=== PATIENT | male | born 1985 | race American Indian/Alaskan Native ===

== ENCOUNTER 2016-06-15 19:04 | Emergency (ER) | payer SELFPAY ==
[2016-06-16 02:25] VITALS: BP 130/73
[2016-06-16] MEDS ORDERED: ROBITUSSIN AC PO ONE (02:55)
[2016-06-16] MEDS ORDERED: TYLENOL PO ONE (02:55)
--- NOTE | 2016-06-16 02:56 | Emergency Department Report ---
HPI - General Chief Complaint: Upper Respiratory Infection Time Seen by Provider: 06/16/16 02:54 - HPI HPI: Patient is a 30-year-old male who presents to ED complaining of coughing, itchy nose and sneezing 1 week. Patient's describes cough as dry nonproductive. Patient states nasal aching started 2 days ago. Patient admits mild runny nose that started today. Patient denies fevers or chills/nausea/vomiting/abdominal pain/shortness of breaths last chest pain. ED Past Medical Hx - Past Medical History Previous Medical History?: Yes Hx Psychiatric Treatment: Yes (Psychosis) Additional medical history: HERPES??? - Social History Smoking Status: Light Tobacco Smoker Substance Use Type: Alcohol - Medications Home Medications: Home Medications Medication Instructions Recorded Confirmed Last Taken Type Acyclovir [Zovirax Cap] 200 mg PO 5XD 10 Days 02/25/15 06/06/15 Unknown Rx Dicyclomine [Bentyl] 20 mg PO QID #20 tablet 05/19/15 06/06/15 Unknown Rx Promethazine [Phenergan TAB] 25 mg PO Q6HR PRN #20 tab 05/19/15 06/06/15 Unknown Rx No Known Home Medications [No 06/16/16 06/16/16 Unknown History Reported Home Medications] ED Review of Systems ROS: Stated complaint: CHEST PAIN/ COLD SX Other details as noted in HPI Constitutional: denies: chills, fever Eyes: denies: eye pain, eye discharge, vision change ENT: denies: ear pain, throat pain, dental pain, hearing loss, epistaxis, congestion Respiratory: cough. denies: shortness of breath, SOB with exertion, SOB at rest , stridor, wheezing Cardiovascular: denies: chest pain, palpitations, edema, syncope Endocrine: no symptoms reported Gastrointestinal: denies: abdominal pain, nausea, vomiting, diarrhea Genitourinary: denies: urgency, dysuria Musculoskeletal: denies: back pain, joint swelling, arthralgia Skin: denies: rash, lesions Neurological: denies: headache, weakness, numbness, paresthesias, confusion, abnormal gait, vertigo Psychiatric: denies: anxiety, depression, suicidal thoughts Hematological/Lymphatic: denies: easy bleeding, easy bruising Physical Exam - Physical Exam Vital Signs: Vital Signs 06/15/16 06/16/16 06/16/16 19:31 02:14 02:24 Temperature 99.9 F H 99.7 F H Pulse Rate 100 H 92 H 74 Respiratory 20 20 16 Rate Blood Pressure 142/81 130/77 130/73 [Right] O2 Sat by Pulse 100 100 95 Oximetry Physical Exam: GENERAL: Alert and oriented x3, no apparent distress, Normal Gait, atraumatic. HEAD: Head is normocephalic and a-traumatic. EYES: Extra ocular muscles are intact. Pupils are equal, round, and reactive to light and accommodation. EARS: symetrical, atraumatic, non tender, ear canal clear and moderate cerumen, tympanic membrance non inflamed. gross auditory nml bilaterally. NOSE: Nose symetrical, Nontender,Nares appeared normal. MOUTH:Mouth is well hydrated and without lesions. Tonsils nonerythematous or swollen, Uvula midline, Tongue not elevated. Mucous membranes are moist. Posterior pharynx clear, no exudate or lesions. Patent airways. NECK: Supple. Non edematous, No carotid bruits. No lymphadenopathy or thyromegaly. LUNGS: Symetrical with respiration, No wheezing, no rales or crackles, CTAB. HEART: S1, S2 present, regular rate and rhythm without murmur, no rubs, no gallops. ABDOMEN: No organomegaly was noted,Positive bowel sounds, soft, and non- distended. . Nontender to palpation on all Quadrants, NO CVA tenderness. EXTREMITIES/MUSCULOSKELETAL: No cyanosis, clubbing, rash, lesions or edema. Full ROM bilaterally. UE/LE Pulses 2+ bilaterally. LE and UE 5+ strength bilaterally SKIN: Warm and dry, No lesions, No ulceration or induration present. ED Course Vital Signs 06/15/16 06/16/16 06/16/16 19:31 02:14 02:24 Temperature 99.9 F H 99.7 F H Pulse Rate 100 H 92 H 74 Respiratory 20 20 16 Rate Blood Pressure 142/81 130/77 130/73 [Right] O2 Sat by Pulse 100 100 95 Oximetry ED Medical Decision Making - EKG Data EKG shows normal: sinus rhythm Rate: normal - EKG Data When compared to previous EKG there are: changes noted Interpretation: normal EKG - Medical Decision Making 30-year-old male presents with allergic sinusitis. ED course: Vital signs stable low-grade fever. Peggy fever reduced prior to discharged Tylenol 650 mg administer in ED. Robitussin before meals 5 mL administered. Discussed with patient to take home medications as prescribed His constipation to stay away from dust or allergens Discussed to follow up with premature physician as referred. EKG completed EKG normal sinus rhythm. Critical care attestation.: If time is entered above; I have spent that time in minutes in the direct care of this critically ill patient, excluding procedure time. ED Disposition Clinical Impression: Allergic sinusitis, Bronchitis Disposition: DISCHARGED TO HOME OR SELFCARE Is pt being admited?: No Does the pt Need Aspirin: No Condition: Stable Instructions: Chronic Bronchitis (ED), Acute Bronchitis (ED), Allergies (ED), Acute Cough (ED) Referrals: PRIMARY CARE, [Primary Care Provider] - 3-5 Days [facility] [Outside] - 3-5 Days [facility] [Outside] - 3-5 Days [facility] [Outside] - 3-5 Days Forms: Work/School Release Form(ED) Time of Disposition: 03:15
== END 2016-06-16 03:33 | disposition home or self-care (01) ==
LOC: ED 19:04
DX: J40 Bronchitis, not specified as acute or chronic (principal); J30.9 Allergic rhinitis, unspecified; F17.200 Nicotine dependence, unspecified, uncomplicated
CPT/HCPCS: 93005; 93010; 99283